=== PATIENT | female | born 1955 | race American Indian/Alaskan Native ===

== ENCOUNTER 2018-07-12 20:09 | Inpatient (IN) | payer MEDICARE ==
[2018-07-12 21:18] LABS: BUN/Creatinine Ratio 20; Blood Urea Nitrogen 18 mg/dL (7-17); Calcium 9.9 mg/dL (8.4-10.2); Hemolysis Index 51
[2018-07-12 21:42] LABS: Hematocrit 34.4 % (30.3-42.9); Hemoglobin 11.8 gm/dl (10.1-14.3); Mean Corpuscular HGB Conc 34 % (30-34); Mean Corpuscular Volume 86 fl (79-97); Platelet Count 218 K/mm3 (140-440); Red Cell Distribution Width 13.9 % (13.2-15.2)
[2018-07-12 21:54] LABS: Basophils # (Auto) 0.1 K/mm3 (0.0-0.1); Basophils % (Auto) 0.6 % (0.0-1.8); Eosinophils # (Auto) 0.1 K/mm3 (0.0-0.4); Eosinophils % (Auto) 1.3 % (0.0-4.3); Lymphocytes # (Auto) 2.7 K/mm3 (1.2-5.4); Lymphocytes % (Auto) 28.3 % (13.4-35.0); Monocytes # (Auto) 0.7 K/mm3 (0.0-0.8)
--- NOTE | 2018-07-12 22:09 | Emergency Department Report ---
ED General Adult HPI - General Chief complaint: Medical Clearance Stated complaint: ABNORMAL BEHAVIOR Time Seen by Provider: 07/12/18 21:41 Source: family, EMS Mode of arrival: Stretcher Limitations: No Limitations - History of Present Illness Initial comments: Patient has been fall frequently according to her sister. Patients Behavior has also changed recently and she takes off her cloths at home for no reason. Patient has history of dementia and Parkinson's disease. However has she states that behavior has drastically changed over the last few days. -: Sudden, days(s) Severity scale (0 -10): 0 Associated Symptoms: confusion Treatments Prior to Arrival: none - Related Data Home Medications Medication Instructions Recorded Confirmed Last Taken AtorvaSTATin [Lipitor] 20 mg PO DAILY 07/12/18 07/12/18 Unknown Carvedilol [Coreg] 6.25 mg PO BID 07/12/18 07/12/18 Unknown Dapagliflozin Propanediol [Farxiga] 10 mg PO DAILY 07/12/18 07/12/18 Unknown Ezetimibe 10 mg PO DAILY 07/12/18 07/12/18 Unknown FLUoxetine [PROzac] 20 mg PO QDAY 07/12/18 07/12/18 Unknown Metformin HCl 500 mg PO BID 07/12/18 07/12/18 Unknown QUEtiapine [SEROquel] 25 mg PO BID 07/12/18 07/12/18 Unknown busPIRone [Buspar] 10 mg PO TID 07/12/18 07/12/18 Unknown dilTIAZem CD [Cardizem Cd] 180 mg PO QDAY 07/12/18 07/12/18 Unknown Allergies Allergy/AdvReac Type Severity Reaction Status Date / Time Sulfa (Sulfonamide Allergy Unknown Verified 07/12/18 20:38 Antibiotics) ED Review of Systems ROS: Stated complaint: ABNORMAL BEHAVIOR Other details as noted in HPI Comment: Unobtainable due to pts medical conditions (Patient is confused and does not answer questions or follow commands.) ED Past Medical Hx - Past Medical History Previous Medical History?: Yes Hx Hypertension: Yes Additional medical history: Parkinson's Dementia - Surgical History Past Surgical History?: No - Social History Smoking Status: Unknown if ever smoked Substance Use Type: None - Medications Home Medications: Home Medications Medication Instructions Recorded Confirmed Last Taken Type AtorvaSTATin [Lipitor] 20 mg PO DAILY 07/12/18 07/12/18 Unknown History Carvedilol [Coreg] 6.25 mg PO BID 07/12/18 07/12/18 Unknown History Dapagliflozin Propanediol [Farxiga] 10 mg PO DAILY 07/12/18 07/12/18 Unknown History Ezetimibe 10 mg PO DAILY 07/12/18 07/12/18 Unknown History FLUoxetine [PROzac] 20 mg PO QDAY 07/12/18 07/12/18 Unknown History Metformin HCl 500 mg PO BID 07/12/18 07/12/18 Unknown History QUEtiapine [SEROquel] 25 mg PO BID 07/12/18 07/12/18 Unknown History busPIRone [Buspar] 10 mg PO TID 07/12/18 07/12/18 Unknown History dilTIAZem CD [Cardizem Cd] 180 mg PO QDAY 07/12/18 07/12/18 Unknown History ED Physical Exam - General Limitations: Altered Mental Status General appearance: alert, in no apparent distress - Head Head exam: Present: atraumatic, normal inspection - Eye Eye exam: Present: normal appearance Pupils: Present: normal accommodation - ENT ENT exam: Present: mucous membranes moist - Neck Neck exam: Present: normal inspection, full ROM. Absent: tenderness - Respiratory Respiratory exam: Present: rales, rhonchi. Absent: respiratory distress - Cardiovascular Cardiovascular Exam: Present: regular rate, normal rhythm - GI/Abdominal GI/Abdominal exam: Present: soft, tenderness (diffused), normal bowel sounds. Absent: distended, guarding, rebound - Rectal Rectal exam: Present: deferred - Extremities Exam Extremities exam: Present: normal inspection, full ROM, normal capillary refill - Back Exam Back exam: Present: normal inspection, full ROM - Neurological Exam Neurological exam: Present: alert, altered - Psychiatric Psychiatric exam: Present: flat affect - Skin Skin exam: Present: warm, dry, intact, normal color. Absent: rash ED Course Vital Signs 07/12/18 07/12/18 07/12/18 21:11 22:27 22:30 Temperature 97.8 F Pulse Rate 84 89 Respiratory 18 19 15 Rate Blood Pressure 161/85 Blood Pressure 121/75 [Left] O2 Sat by Pulse 98 95 99 Oximetry 07/12/18 07/12/18 07/12/18 22:46 23:00 23:16 Temperature Pulse Rate 89 80 Respiratory 15 18 17 Rate Blood Pressure 161/85 158/91 158/91 Blood Pressure [Left] O2 Sat by Pulse 100 98 100 Oximetry 07/12/18 07/12/18 07/13/18 23:30 23:46 00:02 Temperature Pulse Rate 83 86 Respiratory 11 L 12 Rate Blood Pressure 158/91 158/91 158/91 Blood Pressure [Left] O2 Sat by Pulse 98 Oximetry 07/13/18 07/13/18 07/13/18 01:20 01:30 01:45 Temperature Pulse Rate Respiratory Rate Blood Pressure 158/91 140/119 175/88 Blood Pressure [Left] O2 Sat by Pulse 83 L 98 96 Oximetry 07/13/18 02:00 Temperature Pulse Rate Respiratory Rate Blood Pressure 175/88 Blood Pressure [Left] O2 Sat by Pulse Oximetry - Consultations Consultation #1: 07/13/18 03:44 Dr Luz Delarosa wants patient admitted to Dr Stewart. ED Medical Decision Making - Lab Data Result diagrams: 07/12/18 21:35 07/12/18 20:50 Lab Results 07/12/18 07/12/18 07/12/18 Range/Units 20:50 20:50 20:50 WBC (4.5-11.0) K/mm3 RBC (3.65-5.03) M/mm3 Hgb (10.1-14.3) gm/dl Hct (30.3-42.9) % MCV (79-97) fl MCH (28-32) pg MCHC (30-34) % RDW (13.2-15.2) % Plt Count (140-440) K/mm3 Lymph % (Auto) (13.4-35.0) % Clarke % (Auto) (0.0-7.3) % Eos % (Auto) (0.0-4.3) % Baso % (Auto) (0.0-1.8) % Lymph # (1.2-5.4) K/mm3 Clarke # (0.0-0.8) K/mm3 Eos # (0.0-0.4) K/mm3 Baso # (0.0-0.1) K/mm3 Add Manual Diff Seg Neutrophils % (40.0-70.0) % Seg Neutrophils # (1.8-7.7) K/mm3 Sodium 138 (137-145) mmol/L Potassium 3.7 (3.6-5.0) mmol/L Chloride 98.2 (98-107) mmol/L Carbon Dioxide 27 (22-30) mmol/L Anion Gap 17 mmol/L BUN 18 H (7-17) mg/dL Creatinine 0.9 (0.7-1.2) mg/dL Estimated GFR > 60 ml/min BUN/Creatinine Ratio 20 % Glucose 102 H (65-100) mg/dL Calcium 9.9 (8.4-10.2) mg/dL Total Bilirubin (0.1-1.2) mg/dL Direct Bilirubin (0-0.2) mg/dL Indirect Bilirubin mg/dL AST (5-40) units/L ALT (7-56) units/L Alkaline Phosphatase (35-129) units/L Total Protein (6.3-8.2) g/dL Albumin (3.9-5) g/dL Albumin/Globulin Ratio % Lipase (13-60) units/L Salicylates < 0.3 L (2.8-20.0) mg/dL Acetaminophen < 5.0 L (10.0-30.0) ug/mL Plasma/Serum Alcohol (0-0.07) % 07/12/18 07/12/18 07/12/18 Range/Units 20:50 21:35 22:40 WBC 9.4 (4.5-11.0) K/mm3 RBC 4.00 (3.65-5.03) M/mm3 Hgb 11.8 (10.1-14.3) gm/dl Hct 34.4 (30.3-42.9) % MCV 86 (79-97) fl MCH 30 (28-32) pg MCHC 34 (30-34) % RDW 13.9 (13.2-15.2) % Plt Count 218 (140-440) K/mm3 Lymph % (Auto) 28.3 (13.4-35.0) % Clarke % (Auto) 7.0 (0.0-7.3) % Eos % (Auto) 1.3 (0.0-4.3) % Baso % (Auto) 0.6 (0.0-1.8) % Lymph # 2.7 (1.2-5.4) K/mm3 Clarke # 0.7 (0.0-0.8) K/mm3 Eos # 0.1 (0.0-0.4) K/mm3 Baso # 0.1 (0.0-0.1) K/mm3 Add Manual Diff Complete Seg Neutrophils % 62.8 (40.0-70.0) % Seg Neutrophils # 5.9 (1.8-7.7) K/mm3 Sodium (137-145) mmol/L Potassium (3.6-5.0) mmol/L Chloride (98-107) mmol/L Carbon Dioxide (22-30) mmol/L Anion Gap mmol/L BUN (7-17) mg/dL Creatinine (0.7-1.2) mg/dL Estimated GFR ml/min BUN/Creatinine Ratio % Glucose (65-100) mg/dL Calcium (8.4-10.2) mg/dL Total Bilirubin 0.60 (0.1-1.2) mg/dL Direct Bilirubin < 0.2 (0-0.2) mg/dL Indirect Bilirubin 0.4 mg/dL AST 32 (5-40) units/L ALT 11 (7-56) units/L Alkaline Phosphatase 111 (35-129) units/L Total Protein 6.7 (6.3-8.2) g/dL Albumin 3.9 (3.9-5) g/dL Albumin/Globulin Ratio 1.4 % Lipase 33 (13-60) units/L Salicylates (2.8-20.0) mg/dL Acetaminophen (10.0-30.0) ug/mL Plasma/Serum Alcohol < 0.01 (0-0.07) % - EKG Data -: EKG Interpreted by Or EKG shows normal: sinus rhythm Rate: normal (86) - EKG Data When compared to previous EKG there are: previous EKG unavailable Interpretation: normal EKG 07/13/18 00:31 No STEMI. - Radiology Data Radiology results: report reviewed, image reviewed CXR is negative. CT head, chest, abdomen and pelvis showed constipation o/w no acute findings. - Medical Decision Making Altered mental status. Frequent Falls. H/O Dementia. Critical care attestation.: If time is entered above; I have spent that time in minutes in the direct care of this critically ill patient, excluding procedure time. ED Disposition Clinical Impression: Abnormal behavior Altered mental status, unspecified Qualifiers: Altered mental status type: unspecified Qualified Code(s): R41.82 - Altered mental status, unspecified Fall Qualifiers: Encounter type: initial encounter Qualified Code(s): W19.XXXA - Unspecified fall, initial encounter Disposition: 09 OP ADMIT IP TO THIS HOSP Is pt being admited?: Yes Does the pt Need Aspirin: No Condition: Stable Referrals: PRIMARY CARE, [Primary Care Provider] - 3-5 Days Time of Disposition: 03:46
[2018-07-12] MEDS ORDERED: NACL 0.9% 1000 ML 1,000 ML IV ONE (22:13)
[2018-07-12 23:17] LABS: Alanine Aminotransferase 11 units/L (7-56); Albumin 3.9 g/dL (3.9-5)
[2018-07-12 23:25] LABS: Bilirubin,Direct < 0.2 mg/dL (0-0.2)
--- NOTE | 2018-07-12 23:27 | XRay Report ---
FINAL REPORT PROCEDURE: XR CHEST 1V AP TECHNIQUE: Chest radiograph anteroposterior view. CPT 49412 HISTORY: cough COMPARISON: No prior studies are available for comparison. FINDINGS: Heart: Normal. Mediastinum/Vessels: Normal. Lungs/Pleural space: Normal. Bony thorax: No acute osseous abnormality. Life support devices: None. IMPRESSION: No acute cardiopulmonary abnormality.
[2018-07-13] MEDS ORDERED: ATIVAN ONE (00:20)
[2018-07-13] MEDS ORDERED: VERSED IV ONE ×2 (01:00→01:18)
[2018-07-13] MEDS ORDERED: ATIVAN PO ONE (01:07)
[2018-07-13 02:01] LABS: Bilirubin,Urine NEG (Negative); Blood,Urine NEG (Negative); Color,Urine Yellow (Yellow); Mucus,Urine FEW /HPF; Protein,Urine <15 mg/dL mg/dL (Negative); RBC,Urine < 1.0 /HPF (0.0-6.0); Urobilinogen,Urine < 2.0 mg/dL (<2.0); WBC,Urine < 1.0 /HPF (0.0-6.0)
[2018-07-13 02:10] LABS: Amphetamine Screen,Urine PRESUMPTIVE NEGATIVE; Benzodiazepines Screen,Urine PRESUMPTIVE NEGATIVE; Cannabinoid Screen,Urine PRESUMPTIVE NEGATIVE; Cocaine Screen,Urine PRESUMPTIVE NEGATIVE; Methadone Screen,Urine PRESUMPTIVE NEGATIVE; Opiate Screen,Urine PRESUMPTIVE NEGATIVE
--- NOTE | 2018-07-13 02:45 | Cat Scan Report ---
FINAL REPORT PROCEDURE: CT HEAD/BRAIN WO CON TECHNIQUE: Computerized tomography of the head was performed without contrast material. HISTORY: altered mental status COMPARISON: No prior studies are available for comparison. FINDINGS: Skull and scalp: Normal. Paranasal sinuses: Normal. Ventricles and subarachnoid spaces: Normal. Cerebrum: No evidence of hemorrhage, acute infarction or mass . Cerebellum and brainstem: No evidence of hemorrhage, acute infarction or mass. Vasculature: Normal. Comments: None. IMPRESSION: There is no evidence of an acute intracranial process
--- NOTE | 2018-07-13 02:51 | Cat Scan Report ---
FINAL REPORT PROCEDURE: CT ABDOMEN PELVIS W CON TECHNIQUE: Computerized axial tomography of the abdomen and pelvis was performed after the IV inject ion of iodinated nonionic contrast. HISTORY: abdominal pain COMPARISON: No prior studies are available for comparison. FINDINGS: Visualized lower thorax: No significant abnormality. Liver: Normal size and attenuation. Spleen: Normal size and attenuation. Gallbladder and biliary system: Normal. Pancreas: Normal. Adrenals: Normal. Kidneys: Normal. GI tract: No evidence of obstruction. The appendix region has a normal appearance. There is significa nt fecal debris in the colon including the rectum. Constipation and possible fecal impaction are with in the differential.. Lymph nodes and mesentery: Normal. Vasculature: Normal. Bladder: Normal. Reproductive organs: Normal. Peritoneum: No free fluid. Musculoskeletal structures: No significant abnormality. Other: None. IMPRESSION: There is significant fecal debris throughout colon all the rectum. Findings are consistent with const ipation and possible fecal impaction. There is no evidence of intestinal or urinary tract obstruction.
--- NOTE | 2018-07-13 03:01 | Cat Scan Report ---
FINAL REPORT PROCEDURE: CT CHEST W CON TECHNIQUE: Computerized axial tomography of the chest was performed during the IV injection of iodin ated nonionic contrast. HISTORY: shortness of breath COMPARISON: No prior studies are available for comparison. TECHNICAL QUALITY: Satisfactory. FINDINGS: Heart and pericardium: Normal. Thoracic aorta: Normal. Pulmonary vasculature: Normal. Lymph nodes: No enlarged thoracic lymph nodes. Lungs: The lungs are clear. No infiltrate, effusion or pneumothorax.. Pleural space: No effusion, thickening, or pneumothorax. Musculoskeletal structures: Moderate degenerative changes of the osseous structures.. Upper abdominal structures: There is a large hiatal hernia.. IMPRESSION: The lungs are clear without infiltrate, effusion or pneumothorax. There is a large hiatal hernia.
--- NOTE | 2018-07-13 16:01 | History and Physical Report ---
History of Present Illness Date of examination: 07/13/18 Date of admission: 07/13/18 05:22 Chief complaint: AMS History of present illness: Patient is a 63 yo woman from [facility] who recently moved into the area with her sister Beatrice Glass at bedside. She has not establish follow up care. Patient has a history of type 2 DM, hypertension, Parkinsonism symptoms, dlp and dementia with behavior disorder who presents to [facility] ED with AMS, agitation, frequent falling, FTT symptoms and psychosis. She was seen at [facility] ED on Sunday for medication refills and psychosis. She had a 90 day supply from doctor in [facility] but some had run out. She was sent home from [facility] ED with an increase dose of Seroquel 25mg from once daily to twice daily and Buspar was increased from twice daily to three times a day. This has not helped her confusion. She has thrown dirty soiled diapers at family members, she wonders, she is aggressive and fights. Her speech is tangential. She will be admitted for medical clearance to be placed. PMH: as hpi PSH: unable to obtain SH: unable to obtain FH: unable to obtain ROS: unable to obtain due to mental status Medications and Allergies Allergies Allergy/AdvReac Type Severity Reaction Status Date / Time Sulfa (Sulfonamide Allergy Unknown Verified 07/12/18 20:38 Antibiotics) Home Medications Medication Instructions Recorded Confirmed Last Taken Type AtorvaSTATin [Lipitor] 20 mg PO DAILY 07/12/18 07/12/18 Unknown History Carvedilol [Coreg] 6.25 mg PO BID 07/12/18 07/12/18 Unknown History Dapagliflozin Propanediol [Farxiga] 10 mg PO DAILY 07/12/18 07/12/18 Unknown History Ezetimibe 10 mg PO DAILY 07/12/18 07/12/18 Unknown History FLUoxetine [PROzac] 20 mg PO QDAY 07/12/18 07/12/18 Unknown History Metformin HCl 500 mg PO QPM 07/12/18 07/13/18 Unknown History QUEtiapine [SEROquel] 25 mg PO BID 07/12/18 07/12/18 Unknown History busPIRone [Buspar] 10 mg PO TID 07/12/18 07/12/18 Unknown History dilTIAZem CD [Cardizem Cd] 180 mg PO QDAY 07/12/18 07/12/18 Unknown History Carbidopa/Levodopa 25-100 [Sinemet] 1 each PO TID 07/13/18 07/13/18 Unknown History Dapagliflozin Propanediol [Farxiga] 10 mg PO DAILY 07/13/18 07/13/18 Unknown History Active Meds: Active Medications Pneumococcal Polyvalent Vaccine (Pneumovax 23) 0.5 ml IM .ONCE ONE Stop: 07/14/18 12:01 Exam - Physical Exam Narrative exam: Gen: thin frail NAD, Awake, Alert, very confused, HEENT: NCAT, EOMI, PERRL, OP Clear Neck: supple, no adenopathy, no thyromegaly, no JVD CVS/Heart: Regualar tachycardia, normal S1S2, pulses present bilaterally Chest/Lungs: CTA B, Symmetrical chest expansion, good air entry bilaterally GI/Abdomen: soft, NTND, good bowel sounds, no guarding or rebound /Bladder: no suprapubic tenderness, no CVA or paraspinal tenderness Extermity/Skin: no c/c/e, no obvious rash MSK: moving, FROM x 4 Neuro: CN 2-12 grossly intact, no new focal deficits Psych: agitated, fist balled and up swinging - Constitutional Vitals: Temp Pulse Resp BP Pulse Ox 98.0 F 116 H 20 160/99 96 07/13/18 11:34 07/13/18 11:34 07/13/18 11:34 07/13/18 11:34 07/13/18 11:34 Results - Labs CBC & Chem 7: 07/12/18 21:35 07/12/18 20:50 Labs: Abnormal lab results 07/12/18 07/12/18 07/12/18 Range/Units 20:50 20:50 20:50 BUN 18 H (7-17) mg/dL Glucose 102 H (65-100) mg/dL Salicylates < 0.3 L (2.8-20.0) mg/dL Acetaminophen < 5.0 L (10.0-30.0) ug/mL Assessment and Plan Patient is a 63 yo woman from [facility] who recently moved into the area with her sister Beatrice Glass at bedside. She has not establish follow up care. Patient has a history of type 2 DM, hypertension, Parkinsonism symptoms, dlp and dementia with behavior disorder who presents to [facility] ED with AMS, agitation, frequent falling, FTT symptoms and psychosis. She was seen at [facility] ED on Sunday for medication refills and psychosis. She had a 90 day supply from doctor in [facility] but some had run out. She was sent home from [facility] ED with an increase dose of Seroquel 25mg from once daily to twice daily, Buspar was increased from twice daily to three times a day and started Cardizem (new drug). This has not helped her confusion. She has thrown dirty soiled diapers at family members, she wonders, she is aggressive and fights. Her speech is tangential. She will be admitted for medical clearance to be placed. CXR is negative. CT head, chest, abdomen and pelvis showed constipation o/w no acute findings. -Acute metabolic encephalopathy: restraints, add iv haldol prn -Worsening Dementia with behavior disorder; increase seroquel and consulted psych, d/c remote tele, she is throwing the leads at me and refuse to wear them -Tachycardia, ams related: stopped Cardizem due to interaction with seroquel -Constipated: give dulcolax suppository -Dehydration: give ivf -Type 2 DM: use ssi -Malnutrition, bmi 18.9; consult kaiawhina full code Disposition: continue inpatient care
[2018-07-13] MEDS ORDERED: D50W (25GM) Syringe IV PRN (16:12)
[2018-07-13] MEDS ORDERED: DULCOLAX PR ONE (17:00)
[2018-07-13] MEDS: HumaLOG SUB-Q SCH (19:19)
[2018-07-13] MEDS: GLUCOPHAGE PO SCH (19:20)
[2018-07-13] MEDS: NACL 0.45% 1000 ML 1,000 ML IV SCH (20:31)
[2018-07-13] MEDS: BUSPAR PO SCH (20:31)
[2018-07-13] MEDS: ATIVAN IV PRN (20:31)
[2018-07-13] MEDS: SINEMET PO SCH (20:31)
[2018-07-13] MEDS: COREG PO SCH (21:35)
[2018-07-14] MEDS: HumaLOG SUB-Q SCH ×4 (00:07→17:42)
[2018-07-14 04:58] LABS: Hematocrit 37.9 % (30.3-42.9); Hemoglobin 12.3 gm/dl (10.1-14.3); Mean Corpuscular HGB Conc 32 % (30-34); Mean Corpuscular Volume 88 fl (79-97); Platelet Count 214 K/mm3 (140-440); Red Blood Count 4.29 M/mm3 (3.65-5.03); Red Cell Distribution Width 14.3 % (13.2-15.2)
[2018-07-14 05:09] LABS: Blood Urea Nitrogen 14 mg/dL (7-17)
[2018-07-14 05:10] LABS: BUN/Creatinine Ratio 28; Calcium 8.9 mg/dL (8.4-10.2); Hemolysis Index 10
[2018-07-14] MEDS: NACL 0.45% 1000 ML 1,000 ML IV SCH ×2 (06:21→15:30)
[2018-07-14] MEDS: ATIVAN IV PRN (06:24)
[2018-07-14] MEDS: SINEMET PO SCH ×3 (08:32→20:17)
[2018-07-14] MEDS: BUSPAR PO SCH ×3 (08:32→20:17)
[2018-07-14] MEDS: PROzac PO SCH (10:00)
[2018-07-14] MEDS ORDERED: CARDIZEM CD PO SCH (10:00)
[2018-07-14] MEDS: COREG PO SCH ×2 (10:00→21:54)
[2018-07-14] MEDS ORDERED: AFLURIA QUAD 2018-2019 SYRINGE IM ONE (12:00)
[2018-07-14] MEDS ORDERED: PNEUMOVAX 23 IM ONE (12:00)
[2018-07-14] MEDS: ATIVAN PO SCH ×2 (13:20→20:17)
[2018-07-14] MEDS: GLUCOPHAGE PO SCH (17:44)
--- NOTE | 2018-07-14 17:48 | Progress Note ---
Assessment and Plan Assessment and plan: Patient is a 63 yo woman from [facility] who recently moved into the area with her sister Beatrice Glass at bedside. She has not establish follow up care. Patient has a history of type 2 DM, hypertension, Parkinsonism symptoms, dlp and dementia with behavior disorder who presents to [facility] ED with AMS, agitation, frequent falling, FTT symptoms and psychosis. She was seen at [facility] ED on Sunday for medication refills and psychosis. She had a 90 day supply from doctor in [facility] but some had run out. She was sent home from [facility] ED with an increase dose of Seroquel 25mg from once daily to twice daily, Buspar was increased from twice daily to three times a day and started Cardizem (new drug). This has not helped her confusion. She has thrown dirty soiled diapers at family members, she wonders, she is aggressive and fights. Her speech is tangential. She will be admitted for medical clearance to be placed. CXR is negative. CT head, chest, abdomen and pelvis showed constipation o/w no acute findings. -Acute metabolic encephalopathy: restraints, add iv haldol prn, the Ativan helps the most -Worsening Dementia with behavior disorder; increase seroquel and consulted psych, d/c remote tele, she is throwing the leads at me and refuse to wear them -Tachycardia, ams related: stopped Cardizem due to interaction with seroquel -Constipated: give dulcolax suppository -Dehydration: give ivf -Type 2 DM: use ssi -Malnutrition, bmi 18.9; consult grades 1 thru 5 teacher full code Disposition: continue inpatient care History Interval history: Patient was seen and examined. Follow-up on current diagnosis of AMS. Overnight uneventful. Patient denies any chest pain, shortness breath, nausea/vomiting or severe headaches. Imaging, nursing note, chart, labs and old chart reviewed. Discussed with patient. The ativan helps the most. Hospitalist Physical - Physical exam Narrative exam: Gen: thin frail NAD, Awake, Alert, very confused, HEENT: NCAT, EOMI, PERRL, OP Clear Neck: supple, no adenopathy, no thyromegaly, no JVD CVS/Heart: Regualar tachycardia, normal S1S2, pulses present bilaterally Chest/Lungs: CTA B, Symmetrical chest expansion, good air entry bilaterally GI/Abdomen: soft, NTND, good bowel sounds, no guarding or rebound /Bladder: no suprapubic tenderness, no CVA or paraspinal tenderness Extermity/Skin: no c/c/e, no obvious rash MSK: moving, FROM x 4 Neuro: CN 2-12 grossly intact, no new focal deficits Psych: agitated, fist balled and up swinging - Constitutional Vitals: Temp Pulse Resp BP Pulse Ox 97.8 F 102 H 18 132/78 98 07/14/18 12:34 07/14/18 04:39 07/14/18 12:34 07/14/18 12:34 07/14/18 04:39 Results - Labs CBC & Chem 7: 07/14/18 04:24 07/14/18 04:24 Labs: Laboratory Last Values WBC 14.5 K/mm3 (4.5-11.0) H 07/14/18 04:24 RBC 4.29 M/mm3 (3.65-5.03) 07/14/18 04:24 Hgb 12.3 gm/dl (10.1-14.3) 07/14/18 04:24 Hct 37.9 % (30.3-42.9) 07/14/18 04:24 MCV 88 fl (79-97) 07/14/18 04:24 MCH 29 pg (28-32) 07/14/18 04:24 MCHC 32 % (30-34) 07/14/18 04:24 RDW 14.3 % (13.2-15.2) 07/14/18 04:24 Plt Count 214 K/mm3 (140-440) 07/14/18 04:24 Lymph % (Auto) 28.3 % (13.4-35.0) 07/12/18 21:35 [place] % (Auto) 7.0 % (0.0-7.3) 07/12/18 21:35 Eos % (Auto) 1.3 % (0.0-4.3) 07/12/18 21:35 Baso % (Auto) 0.6 % (0.0-1.8) 07/12/18 21:35 Lymph # 2.7 K/mm3 (1.2-5.4) 07/12/18 21:35 [place] # 0.7 K/mm3 (0.0-0.8) 07/12/18 21:35 Eos # 0.1 K/mm3 (0.0-0.4) 07/12/18 21:35 Baso # 0.1 K/mm3 (0.0-0.1) 07/12/18 21:35 Add Manual Diff Complete 07/12/18 21:35 Seg Neutrophils % 62.8 % (40.0-70.0) 07/12/18 21:35 Seg Neutrophils # 5.9 K/mm3 (1.8-7.7) 07/12/18 21:35 Sodium 138 mmol/L (137-145) 07/14/18 04:24 Potassium 4.2 mmol/L (3.6-5.0) 07/14/18 04:24 Chloride 101.3 mmol/L (98-107) 07/14/18 04:24 Carbon Dioxide 25 mmol/L (22-30) 07/14/18 04:24 Anion Gap 16 mmol/L 07/14/18 04:24 BUN 14 mg/dL (7-17) 07/14/18 04:24 Creatinine 0.5 mg/dL (0.7-1.2) L 07/14/18 04:24 Estimated GFR > 60 ml/min 07/14/18 04:24 BUN/Creatinine Ratio 28 % 07/14/18 04:24 Glucose 106 mg/dL (65-100) H 07/14/18 04:24 POC Glucose 135 (70-105) H 07/14/18 16:56 Calcium 8.9 mg/dL (8.4-10.2) 07/14/18 04:24 Magnesium 1.80 mg/dL (1.7-2.3) 07/14/18 04:24 Total Bilirubin 0.60 mg/dL (0.1-1.2) 07/12/18 22:40 Direct Bilirubin < 0.2 mg/dL (0-0.2) 07/12/18 22:40 Indirect Bilirubin 0.4 mg/dL 07/12/18 22:40 AST 32 units/L (5-40) 07/12/18 22:40 ALT 11 units/L (7-56) 07/12/18 22:40 Alkaline Phosphatase 111 units/L (35-129) 07/12/18 22:40 Troponin T < 0.010 ng/mL (0.00-0.029) 07/12/18 22:40 Total Protein 6.7 g/dL (6.3-8.2) 07/12/18 22:40 Albumin 3.9 g/dL (3.9-5) 07/12/18 22:40 Albumin/Globulin Ratio 1.4 % 07/12/18 22:40 Lipase 33 units/L (13-60) 07/12/18 22:40 TSH 2.320 mlU/mL (0.270-4.200) 07/14/18 04:24 Urine Color Yellow (Yellow) 07/12/18 01:29 Urine Turbidity Clear (Clear) 07/12/18 01:29 Urine pH 5.0 (5.0-7.0) 07/12/18 01:29 Ur Specific [place] 1.020 (1.003-1.030) 07/12/18 01:29 Urine Protein <15 mg/dl mg/dL (Negative) 07/12/18 01:29 Urine Glucose (UA) >=500 mg/dL (Negative) 07/12/18 01:29 Urine Ketones Tr mg/dL (Negative) 07/12/18 01:29 Urine Blood Neg (Negative) 07/12/18 01:29 Urine Nitrite Neg (Negative) 07/12/18 01:29 Urine Bilirubin Neg (Negative) 07/12/18 01:29 Urine Urobilinogen < 2.0 mg/dL (<2.0) 07/12/18 01:29 Ur Leukocyte Esterase Neg (Negative) 07/12/18 01:29 Urine WBC (Auto) < 1.0 /HPF (0.0-6.0) 07/12/18 01:29 Urine RBC (Auto) < 1.0 /HPF (0.0-6.0) 07/12/18 01:29 Urine Mucus Few /HPF 07/12/18 01:29 Salicylates < 0.3 mg/dL (2.8-20.0) L 07/12/18 20:50 Urine Opiates Screen Presumptive negative 07/12/18 01:29 Urine Methadone Screen Presumptive negative 07/12/18 01:29 Acetaminophen < 5.0 ug/mL (10.0-30.0) L 07/12/18 20:50 Ur Barbiturates Screen Presumptive negative 07/12/18 01:29 Ur Phencyclidine Scrn Presumptive negative 07/12/18 01:29 Ur Amphetamines Screen Presumptive negative 07/12/18 01:29 U Benzodiazepines Scrn Presumptive negative 07/12/18 01:29 Urine Cocaine Screen Presumptive negative 07/12/18 01:29 U Marijuana (THC) Screen Presumptive negative 07/12/18 01:29 Drugs of Abuse Note Disclamer 07/12/18 01:29 Plasma/Serum Alcohol < 0.01 % (0-0.07) 07/12/18 20:50
--- NOTE | 2018-07-14 18:32 | Consultation ---
History of Present Illness - Reason for Consult Consult date: 07/14/18 Reason for consult: psychiatric evaluation - Chief Complaint Chief complaint: "ok" - History of Present Psychiatric Illness 63 year old AA female seen for psychiatric evaluation on the medical floor. She presents to [facility] ED with AMS, agitation, frequent falling, FTT symptoms and psychosis. She was seen at [facility] ED on Sunday for medica tion refills and psychotic symptoms. Per the record, [she had a 90 day supply from doctor in [place] but some had run out. She was sent home from [facility] ED with an increase dose of Seroquel 25mg from once daily to twice daily and Buspar was increased from twice daily to three times a day. This has not helped her confusion. She has thrown dirty soiled diapers at family members, she wanders, she is aggressive and fights. Her speech is tangential. She will be admitted for medical clearance to be placed.] She is yelling. Speech is mostly incoherent. She was able to ask for the tv channel to be changed. She stated her name when asked. Medications and Allergies Allergies Allergy/AdvReac Type Severity Reaction Status Date / Time Sulfa (Sulfonamide Allergy Unknown Verified 07/12/18 20:38 Antibiotics) Home Medications Medication Instructions Recorded Confirmed Last Taken Type AtorvaSTATin [Lipitor] 20 mg PO DAILY 07/12/18 07/12/18 Unknown History Carvedilol [Coreg] 6.25 mg PO BID 07/12/18 07/12/18 Unknown History Dapagliflozin Propanediol [Farxiga] 10 mg PO DAILY 07/12/18 07/12/18 Unknown History Ezetimibe 10 mg PO DAILY 07/12/18 07/12/18 Unknown History FLUoxetine [PROzac] 20 mg PO QDAY 07/12/18 07/12/18 Unknown History Metformin HCl 500 mg PO QPM 07/12/18 07/13/18 Unknown History QUEtiapine [SEROquel] 25 mg PO BID 07/12/18 07/12/18 Unknown History busPIRone [Buspar] 10 mg PO TID 07/12/18 07/12/18 Unknown History dilTIAZem CD [Cardizem Cd] 180 mg PO QDAY 07/12/18 07/12/18 Unknown History Carbidopa/Levodopa 25-100 [Sinemet] 1 each PO TID 07/13/18 07/13/18 Unknown History Dapagliflozin Propanediol [Farxiga] 10 mg PO DAILY 07/13/18 07/13/18 Unknown History Active Meds: Active Medications Atorvastatin Calcium (Lipitor) 20 mg PO QHS [facility] Last Admin: 07/13/18 21:35 Dose: 20 mg Documented by: Buspirone HCl (Buspar) 10 mg PO TID [facility] Last Admin: 07/14/18 13:20 Dose: 10 mg Documented by: Carbidopa/Levodopa (Sinemet) 1 each PO TID [facility] Last Admin: 07/14/18 13:20 Dose: 1 each Documented by: Carvedilol (Coreg) 6.25 mg PO BID [facility] Last Admin: 07/14/18 10:00 Dose: 6.25 mg Documented by: Dextrose (D50w (25gm) Syringe) 50 ml IV PRN PRN PRN Reason: Hypoglycemia Fluoxetine HCl (Prozac) 20 mg PO QDAY [facility] Last Admin: 07/14/18 10:00 Dose: 20 mg Documented by: Haloperidol Lactate (Haldol) 5 mg IM Q6H PRN PRN Reason: Agitation Sodium Chloride (Nacl 0.45% 1000 Ml) 1,000 mls @ 100 mls/hr IV DIRECT [facility] Last Admin: 07/14/18 15:30 Dose: 100 mls/hr Documented by: Insulin Human Lispro (Humalog) 0 unit SUB-Q Q6HR [facility]; Protocol Last Admin: 07/14/18 17:42 Dose: Not Given Documented by: Lorazepam (Ativan) 1 mg PO TID [facility] Last Admin: 07/14/18 13:20 Dose: 1 mg Documented by: Metformin HCl (Glucophage) 500 mg PO QPM [facility] Last Admin: 07/14/18 17:44 Dose: 500 mg Documented by: Quetiapine Fumarate (Seroquel) 50 mg PO BID [facility] Last Admin: 07/14/18 10:00 Dose: 50 mg Documented by: Past psychiatric history - Past Medical History Past Medical History: other (type 2 DM, hypertension, Parkinsonism symptoms, dementia with behavior disorder ) - Social History Social history: lives with family Mental Status Exam - Vital signs Last Vital Signs Temp 98.0 F 07/14/18 17:17 Pulse 102 H 07/14/18 04:39 Resp 16 07/14/18 17:17 BP 166/93 07/14/18 17:17 Pulse Ox 98 07/14/18 04:39 - Exam Orientation: person Affect: agitated Mood: congruent with affect Thought content: other (unable to assess) Thought Process: Disoriented Speech: incoherent (mostly incoherent) Concentration: unable to pay attention Motor activity: restless Level of consciousness: confused Memory: Recent Impaired Sleep Symptoms: Restless Interaction: irritable Results Result Diagrams: 07/14/18 04:24 07/14/18 04:24 Abnormal lab results 07/14/18 07/14/18 07/14/18 Range/Units 00:07 04:24 04:24 WBC 14.5 H (4.5-11.0) K/mm3 Creatinine 0.5 L (0.7-1.2) mg/dL Glucose 106 H (65-100) mg/dL POC Glucose 119 H (70-105) 07/14/18 07/14/18 07/14/18 Range/Units 05:27 12:09 16:56 WBC (4.5-11.0) K/mm3 Creatinine (0.7-1.2) mg/dL Glucose (65-100) mg/dL POC Glucose 110 H 155 H 135 H (70-105) All other labs normal. Assessment and Plan Assessment and plan: Impression: dementia with behavioral disturbance r/o delirium recommendation: fall precautions seroquel increases the risk of orthostatic hypotension and falls consider risperdal 0.5mg hs for agitation r/o underlying medical conditions responsible for worsening behavior/falls. Recommend Delirium precautions below: 1. Frequently reorient patient and involve him/her in their care (simple explanations of procedures, tests, medications). 2. Lights on and shades open during daytime hours. 3. Write date and goals of care in a visible place. 4. Try to avoid unnecessary interruptions to sleep during nighttime hours. 5. Obtain glasses, hearing aids from home if patient uses these at baseline. 6. Avoid medications that may exacerbate delirium (especially narcotics, benzodiazepines, barbiturates, ambien, lunesta, and medications with excessive anticholinergic property.) dispo: psych will follow will staff with Dr. Cong Whalen
[2018-07-15] MEDS: HumaLOG SUB-Q SCH ×4 (00:02→17:25)
[2018-07-15] MEDS: NACL 0.45% 1000 ML 1,000 ML IV SCH ×3 (00:09→22:33)
[2018-07-15] MEDS ORDERED: APRESOLINE IV PRN (06:35)
--- NOTE | 2018-07-15 07:26 | Progress Note ---
Assessment and Plan Assessment and plan: Patient is a 63 yo woman from [facility] who recently moved into the area with her sister Beatrice Glass at bedside. She has not establish follow up care. Patient has a history of type 2 DM, hypertension, Parkinsonism symptoms, dlp and dementia with behavior disorder who presents to [facility] ED with AMS, agitation, frequent falling, FTT symptoms and psychosis. She was seen at [facility] ED on Sunday for medication refills and psychosis. She had a 90 day supply from doctor in [facility] but some had run out. She was sent home from [facility] ED with an increase dose of Seroquel 25mg from once daily to twice daily, Buspar was increased from twice daily to three times a day and started Cardizem (new drug). This has not helped her confusion. She has thrown dirty soiled diapers at family members, she wonders, she is aggressive and fights. Her speech is tangential. She will be admitted for medical clearance to be placed. CXR is negative. CT head, chest, abdomen and pelvis showed constipation o/w no acute findings. -Acute metabolic encephalopathy: restraints, add iv haldol prn, the Ativan helps the most -Worsening Dementia with behavior disorder; increase seroquel and consulted psych, d/c remote tele, she is throwing the leads at me and refuse to wear them -Tachycardia, ams related: stopped Cardizem due to interaction with seroquel and she is already on coreg -Accelerated hypertension; added Norvasc -Constipated: give dulcolax suppository -Dehydration: give ivf -Type 2 DM: use ssi -Malnutrition, bmi 15.5 corrected; consult bat lathe operator full code Disposition: continue inpatient care History Interval history: Patient was seen and examined. Follow-up on current diagnosis of AMS. Overnight uneventful. Patient denies any chest pain, shortness breath, nausea/vomiting or severe headaches. Imaging, nursing note, chart, labs and old chart reviewed. Di scussed with patient. The ativan helps the most. Hospitalist Physical - Physical exam Narrative exam: Gen: thin frail NAD, Awake, Alert, very confused, HEENT: NCAT, EOMI, PERRL, OP Clear Neck: supple, no adenopathy, no thyromegaly, no JVD CVS/Heart: Regualar tachycardia, normal S1S2, pulses present bilaterally Chest/Lungs: CTA B, Symmetrical chest expansion, good air entry bilaterally GI/Abdomen: soft, NTND, good bowel sounds, no guarding or rebound /Bladder: no suprapubic tenderness, no CVA or paraspinal tenderness Extermity/Skin: no c/c/e, no obvious rash MSK: moving, FROM x 4 Neuro: CN 2-12 grossly intact, no new focal deficits Psych: agitated, fist balled and up swinging - Constitutional Vitals: Temp Pulse Resp BP Pulse Ox 98.2 F 74 20 184/91 100 07/15/18 05:01 07/15/18 05:01 07/15/18 05:01 07/15/18 06:37 07/15/18 05:01 Results - Labs CBC & Chem 7: 07/14/18 04:24 07/14/18 04:24 Labs: Laboratory Last Values WBC 14.5 K/mm3 (4.5-11.0) H 07/14/18 04:24 RBC 4.29 M/mm3 (3.65-5.03) 07/14/18 04:24 Hgb 12.3 gm/dl (10.1-14.3) 07/14/18 04:24 Hct 37.9 % (30.3-42.9) 07/14/18 04:24 MCV 88 fl (79-97) 07/14/18 04:24 MCH 29 pg (28-32) 07/14/18 04:24 MCHC 32 % (30-34) 07/14/18 04:24 RDW 14.3 % (13.2-15.2) 07/14/18 04:24 Plt Count 214 K/mm3 (140-440) 07/14/18 04:24 Lymph % (Auto) 28.3 % (13.4-35.0) 07/12/18 21:35 [place] % (Auto) 7.0 % (0.0-7.3) 07/12/18 21:35 Eos % (Auto) 1.3 % (0.0-4.3) 07/12/18 21:35 Baso % (Auto) 0.6 % (0.0-1.8) 07/12/18 21:35 Lymph # 2.7 K/mm3 (1.2-5.4) 07/12/18 21:35 [place] # 0.7 K/mm3 (0.0-0.8) 07/12/18 21:35 Eos # 0.1 K/mm3 (0.0-0.4) 07/12/18 21:35 Baso # 0.1 K/mm3 (0.0-0.1) 07/12/18 21:35 Add Manual Diff Complete 07/12/18 21:35 Seg Neutrophils % 62.8 % (40.0-70.0) 07/12/18 21:35 Seg Neutrophils # 5.9 K/mm3 (1.8-7.7) 07/12/18 21:35 Sodium 138 mmol/L (137-145) 07/14/18 04:24 Potassium 4.2 mmol/L (3.6-5.0) 07/14/18 04:24 Chloride 101.3 mmol/L (98-107) 07/14/18 04:24 Carbon Dioxide 25 mmol/L (22-30) 07/14/18 04:24 Anion Gap 16 mmol/L 07/14/18 04:24 BUN 14 mg/dL (7-17) 07/14/18 04:24 Creatinine 0.5 mg/dL (0.7-1.2) L 07/14/18 04:24 Estimated GFR > 60 ml/min 07/14/18 04:24 BUN/Creatinine Ratio 28 % 07/14/18 04:24 Glucose 106 mg/dL (65-100) H 07/14/18 04:24 POC Glucose 95 (70-105) 07/15/18 05:47 Calcium 8.9 mg/dL (8.4-10.2) 07/14/18 04:24 Magnesium 1.80 mg/dL (1.7-2.3) 07/14/18 04:24 Total Bilirubin 0.60 mg/dL (0.1-1.2) 07/12/18 22:40 Direct Bilirubin < 0.2 mg/dL (0-0.2) 07/12/18 22:40 Indirect Bilirubin 0.4 mg/dL 07/12/18 22:40 AST 32 units/L (5-40) 07/12/18 22:40 ALT 11 units/L (7-56) 07/12/18 22:40 Alkaline Phosphatase 111 units/L (35-129) 07/12/18 22:40 Troponin T < 0.010 ng/mL (0.00-0.029) 07/12/18 22:40 Total Protein 6.7 g/dL (6.3-8.2) 07/12/18 22:40 Albumin 3.9 g/dL (3.9-5) 07/12/18 22:40 Albumin/Globulin Ratio 1.4 % 07/12/18 22:40 Lipase 33 units/L (13-60) 07/12/18 22:40 TSH 2.320 mlU/mL (0.270-4.200) 07/14/18 04:24 Urine Color Yellow (Yellow) 07/12/18 01:29 Urine Turbidity Clear (Clear) 07/12/18 01:29 Urine pH 5.0 (5.0-7.0) 07/12/18 01:29 Ur Specific [place] 1.020 (1.003-1.030) 07/12/18 01:29 Urine Protein <15 mg/dl mg/dL (Negative) 07/12/18 01:29 Urine Glucose (UA) >=500 mg/dL (Negative) 07/12/18 01:29 Urine Ketones Tr mg/dL (Negative) 07/12/18 01:29 Urine Blood Neg (Negative) 07/12/18 01:29 Urine Nitrite Neg (Negative) 07/12/18 01:29 Urine Bilirubin Neg (Negative) 07/12/18 01:29 Urine Urobilinogen < 2.0 mg/dL (<2.0) 07/12/18 01:29 Ur Leukocyte Esterase Neg (Negative) 07/12/18 01:29 Urine WBC (Auto) < 1.0 /HPF (0.0-6.0) 07/12/18 01:29 Urine RBC (Auto) < 1.0 /HPF (0.0-6.0) 07/12/18 01:29 Urine Mucus Few /HPF 07/12/18 01:29 Salicylates < 0.3 mg/dL (2.8-20.0) L 07/12/18 20:50 Urine Opiates Screen Presumptive negative 07/12/18 01:29 Urine Methadone Screen Presumptive negative 07/12/18 01:29 Acetaminophen < 5.0 ug/mL (10.0-30.0) L 07/12/18 20:50 Ur Barbiturates Screen Presumptive negative 07/12/18 01:29 Ur Phencyclidine Scrn Presumptive negative 07/12/18 01:29 Ur Amphetamines Screen Presumptive negative 07/12/18 01:29 U Benzodiazepines Scrn Presumptive negative 07/12/18 01:29 Urine Cocaine Screen Presumptive negative 07/12/18 01:29 U Marijuana (THC) Screen Presumptive negative 07/12/18 01:29 Drugs of Abuse Note Disclamer 07/12/18 01:29 Plasma/Serum Alcohol < 0.01 % (0-0.07) 07/12/18 20:50
[2018-07-15] MEDS: ATIVAN PO SCH ×2 (08:20→09:15)
[2018-07-15] MEDS ORDERED: ATIVAN PO PRN (08:22)
[2018-07-15] MEDS: BUSPAR PO SCH ×3 (08:58→22:30)
[2018-07-15] MEDS: SINEMET PO SCH ×3 (08:58→22:31)
[2018-07-15] MEDS: COREG PO SCH ×2 (09:55→22:34)
[2018-07-15] MEDS: NORVASC PO SCH (09:56)
[2018-07-15] MEDS: PROzac PO SCH (09:57)
--- NOTE | 2018-07-15 11:40 | Progress Note ---
Subjective - Reason for Consult Consult date: 07/15/18 Reason for consult: Psychiatry Follow-up - Chief Complaint Chief complaint: "What" 63 year old AA female seen for psychiatric evaluation on the medical floor. She presents to [facility] ED with AMS, agitation, frequent falling, FTT symptoms and psychosis. Today the patient is agitated and currently restrained. Unable to assess the patient at this time.. Mental Status Exam - Vital signs Last Vital Signs Temp 98.2 F 07/15/18 05:01 Pulse 88 07/15/18 09:56 Resp 20 07/15/18 05:01 BP 145/91 07/15/18 09:56 Pulse Ox 100 07/15/18 05:01 - Exam Narrative exam: Unable to complete a MSE because of the patient's condition. Assessment and Plan Impression: Hx of Dementia per the record. Today the patient is agitated and currently restrained. Unable to assess the patient. DDx: R/O Psychotic DO Recommendation/Plan: Continue home medications Zoloft and Buspar. D/C'd Seroquel and start Risperdal 0.5 mg PO HS for agitation. The benefit of giving the patient Risperdal outweigh the risk at this time. The medical staff can continue to R/O underlying medical conditions responsible for worsening behavior/falls by the patient. Recommend Delirium precautions below: 1. Frequently reorient patient and involve him/her in their care (simple explanations of procedures, tests, medications). 2. Lights on and shades open during daytime hours. 3. Write date and goals of care in a visible place. 4. Try to avoid unnecessary interruptions to sleep during nighttime hours. 5. Obtain glasses, hearing aids from home if patient uses these at baseline. 6. Avoid medications that may exacerbate delirium (especially narcotics, benzodiazepines, barbiturates, ambien, lunesta, and medications with excessive anticholinergic property.) 7. Recommend a 1:1 sitter for safety. 8. D/C restraints when not indicated. Dispo: Will continue to follow the patient to determine proper dispo. Will staff with Dr. Cong Whalen
[2018-07-15] MEDS: HALDOL IM PRN (16:18)
[2018-07-15] MEDS: GLUCOPHAGE PO SCH (18:46)
[2018-07-15] MEDS: RisperDAL PO SCH (22:30)
[2018-07-16] MEDS: HumaLOG SUB-Q SCH ×4 (02:27→18:09)
[2018-07-16] MEDS: HALDOL IM PRN ×3 (04:36→23:55)
--- NOTE | 2018-07-16 08:08 | Progress Note ---
Assessment and Plan Assessment and plan: Patient is a 63 yo woman from [facility] who recently moved into the area with her sister Beatrice Catherine at bedside. She has not establish follow up care. Patient has a history of type 2 DM, hypertension, Parkinsonism symptoms, dlp and dementia with behavior disorder who presents to [facility] ED with AMS, agitation, frequent falling, FTT symptoms and psychosis. She was seen at [facility] ED on Sunday for medication refills and psychosis. She had a 90 day supply from doctor in [facility] but some had run out. She was sent home from [facility] ED with an increase dose of Seroquel 25mg from once daily to twice daily, Buspar was increased from twice daily to three times a day and started Cardizem (new drug). This has not helped her confusion. She has thrown dirty soiled diapers at family members, she wonders, she is aggressive and fights. Her speech is tangential. She will be admitted for medical clearance to be placed. CXR is negative. CT head, chest, abdomen and pelvis showed constipation o/w no acute findings. -Acute metabolic encephalopathy: restraints, add iv haldol prn, the Ativan helps the most -Worsening Dementia with behavior disorder; increase seroquel and consulted psych, d/c remote tele, she is throwing the leads at me and refuse to wear them -Tachycardia, ams related: stopped Cardizem due to interaction with seroquel and she is already on coreg -Accelerated hypertension; added Norvasc -Constipated: give dulcolax suppository -Dehydration: give ivf -Type 2 DM: use ssi -Severe Malnutrition, bmi 15.5 corrected; consult ingot buggy operator full code Disposition: continue inpatient care, d/w caregiver sister Zulema catherine, SNF placement patient trigger level 2 [place] the state History Interval history: Patient was seen and examined. Follow-up on current diagnosis of AMS. Overnight uneventful. Patient denies any chest pain, shortness breath, nausea/vomiting or severe headaches. Imaging, nursing note, chart, labs and old chart reviewed. Discussed with patient. The ativan helps the most. Hospitalist Physical - Physical exam Narrative exam: Gen: thin frail NAD, Awake, Alert, very confused, HEENT: NCAT, EOMI, PERRL, OP Clear Neck: supple, no adenopathy, no thyromegaly, no JVD CVS/Heart: Regualar tachycardia, normal S1S2, pulses present bilaterally Chest/Lungs: CTA B, Symmetrical chest expansion, good air entry bilaterally GI/Abdomen: soft, NTND, good bowel sounds, no guarding or rebound /Bladder: no suprapubic tenderness, no CVA or paraspinal tenderness Extermity/Skin: no c/c/e, no obvious rash MSK: moving, FROM x 4 Neuro: CN 2-12 grossly intact, no new focal deficits Psych: agitated, fist balled and up swinging - Constitutional Vitals: Temp Pulse Resp BP Pulse Ox 96.8 F L 84 20 139/82 98 07/16/18 06:37 07/16/18 06:37 07/16/18 06:37 07/16/18 06:37 07/16/18 06:37 Results - Labs CBC & Chem 7: 07/14/18 04:24 07/14/18 04:24 Labs: Laboratory Last Values WBC 14.5 K/mm3 (4.5-11.0) H 07/14/18 04:24 RBC 4.29 M/mm3 (3.65-5.03) 07/14/18 04:24 Hgb 12.3 gm/dl (10.1-14.3) 07/14/18 04:24 Hct 37.9 % (30.3-42.9) 07/14/18 04:24 MCV 88 fl (79-97) 07/14/18 04:24 MCH 29 pg (28-32) 07/14/18 04:24 MCHC 32 % (30-34) 07/14/18 04:24 RDW 14.3 % (13.2-15.2) 07/14/18 04:24 Plt Count 214 K/mm3 (140-440) 07/14/18 04:24 Lymph % (Auto) 28.3 % (13.4-35.0) 07/12/18 21:35 [place] % (Auto) 7.0 % (0.0-7.3) 07/12/18 21:35 Eos % (Auto) 1.3 % (0.0-4.3) 07/12/18 21:35 Baso % (Auto) 0.6 % (0.0-1.8) 07/12/18 21:35 Lymph # 2.7 K/mm3 (1.2-5.4) 07/12/18 21:35 [place] # 0.7 K/mm3 (0.0-0.8) 07/12/18 21:35 Eos # 0.1 K/mm3 (0.0-0.4) 07/12/18 21:35 Baso # 0.1 K/mm3 (0.0-0.1) 07/12/18 21:35 Add Manual Diff Complete 07/12/18 21:35 Seg Neutrophils % 62.8 % (40.0-70.0) 07/12/18 21:35 Seg Neutrophils # 5.9 K/mm3 (1.8-7.7) 07/12/18 21:35 Sodium 138 mmol/L (137-145) 07/14/18 04:24 Potassium 4.2 mmol/L (3.6-5.0) 07/14/18 04:24 Chloride 101.3 mmol/L (98-107) 07/14/18 04:24 Carbon Dioxide 25 mmol/L (22-30) 07/14/18 04:24 Anion Gap 16 mmol/L 07/14/18 04:24 BUN 14 mg/dL (7-17) 07/14/18 04:24 Creatinine 0.5 mg/dL (0.7-1.2) L 07/14/18 04:24 Estimated GFR > 60 ml/min 07/14/18 04:24 BUN/Creatinine Ratio 28 % 07/14/18 04:24 Glucose 106 mg/dL (65-100) H 07/14/18 04:24 POC Glucose 108 (70-105) H 07/16/18 06:09 Calcium 8.9 mg/dL (8.4-10.2) 07/14/18 04:24 Magnesium 1.80 mg/dL (1.7-2.3) 07/14/18 04:24 Total Bilirubin 0.60 mg/dL (0.1-1.2) 07/12/18 22:40 Direct Bilirubin < 0.2 mg/dL (0-0.2) 07/12/18 22:40 Indirect Bilirubin 0.4 mg/dL 07/12/18 22:40 AST 32 units/L (5-40) 07/12/18 22:40 ALT 11 units/L (7-56) 07/12/18 22:40 Alkaline Phosphatase 111 units/L (35-129) 07/12/18 22:40 Ammonia 43.0 umol/L (25-60) 07/15/18 12:53 Troponin T < 0.010 ng/mL (0.00-0.029) 07/12/18 22:40 Total Protein 6.7 g/dL (6.3-8.2) 07/12/18 22:40 Albumin 3.9 g/dL (3.9-5) 07/12/18 22:40 Albumin/Globulin Ratio 1.4 % 07/12/18 22:40 Lipase 33 units/L (13-60) 07/12/18 22:40 TSH 2.320 mlU/mL (0.270-4.200) 07/14/18 04:24 Urine Color Yellow (Yellow) 07/12/18 01:29 Urine Turbidity Clear (Clear) 07/12/18 01:29 Urine pH 5.0 (5.0-7.0) 07/12/18 01:29 Ur Specific [place] 1.020 (1.003-1.030) 07/12/18 01:29 Urine Protein <15 mg/dl mg/dL (Negative) 07/12/18 01:29 Urine Glucose (UA) >=500 mg/dL (Negative) 07/12/18 01:29 Urine Ketones Tr mg/dL (Negative) 07/12/18 01:29 Urine Blood Neg (Negative) 07/12/18 01:29 Urine Nitrite Neg (Negative) 07/12/18 01:29 Urine Bilirubin Neg (Negative) 07/12/18 01:29 Urine Urobilinogen < 2.0 mg/dL (<2.0) 07/12/18 01:29 Ur Leukocyte Esterase Neg (Negative) 07/12/18 01:29 Urine WBC (Auto) < 1.0 /HPF (0.0-6.0) 07/12/18 01:29 Urine RBC (Auto) < 1.0 /HPF (0.0-6.0) 07/12/18 01:29 Urine Mucus Few /HPF 07/12/18 01:29 Salicylates < 0.3 mg/dL (2.8-20.0) L 07/12/18 20:50 Urine Opiates Screen Presumptive negative 07/12/18 01:29 Urine Methadone Screen Presumptive negative 07/12/18 01:29 Acetaminophen < 5.0 ug/mL (10.0-30.0) L 07/12/18 20:50 Ur Barbiturates Screen Presumptive negative 07/12/18 01:29 Ur Phencyclidine Scrn Presumptive negative 07/12/18 01:29 Ur Amphetamines Screen Presumptive negative 07/12/18 01:29 U Benzodiazepines Scrn Presumptive negative 07/12/18 01:29 Urine Cocaine Screen Presumptive negative 07/12/18 01:29 U Marijuana (THC) Screen Presumptive negative 07/12/18 01:29 Drugs of Abuse Note Disclamer 07/12/18 01:29 Plasma/Serum Alcohol < 0.01 % (0-0.07) 07/12/18 20:50 Nutrition/Malnutrition Assess - Dietary Evaluation Nutrition/Malnutrition Findings: Nutrition Notes Start: 07/15/18 13:31 Freq: Status: Active Protocol: Document 07/15/18 13:32 OH (Rec: 07/15/18 13:56 OH [id number]) Nutrition Notes Need for Assessment generated from: MD Order Initial or Follow up Assessment Current Diagnoses Diabetes Hypertension Other Pertinent Diagnosis dementia; Parkinsonism; low BMI Current Diet PUREE Labs/Tests K+ 4.2 alb 3.9 Ca 8.9 Glu 90 na 138 Medications Ativan Coreg Humalog Prozac Norvasc Lipitor Haldol Height 5 ft 4 in Weight 41 kg [place] Body Weight (lbs) 120.0 BMI 15.5 Intake Prior to Admission Excellent Weight change and time frame Per sister, whom patient resides with, pt has a great appetite. Sister indicates she has steadily lost weight over the past 3 years. Prior, patient's weight was 177# (80. 45 kgs). Weight Status Underweight Subjective/Other Information Consulted for low BMI. Pt. noted to be severely underweight for height. Spoke w/sister who indicates patient lives with her. She is her caregiver along with sister's daughters. Per sister she feeds her 3x/day plus 3 snacks . Sister states she has dementia/Parkinsonism which contributes to her underweight ? Pt. consumes (4) 16 oz bottles of water daily at a minimum. Pt is always thirsty. In the past pt has drunk Boost/ensure but due to financial restraints she hasn' t been getting it at home. Sister states, " I would rather not put her in a detention. I don't think she would get what she needs there." Sister agreeable to starting Ensure bid for patient. Percent of energy/protein needs met: 100/100% Burn Absent Trauma Absent GI Symptoms None Current % PO GOOD (75-100%) #1 Nutrition Diagnoses Underweight Etiology RMR greater than kcal/pro intake As Evidenced by Signs and Symptoms BMI 15.5 Diagnosis Progress(for reassessment Continues documentation) Is patient on ventilator? No Is Patient Ambulatory and/or Out of Bed No REE-([facility]-confined to bed) 1139.652 Kcal/Kg value to use for calculation 40 Approximate Energy Requirements Using 1640 kcal/Kg Calculation Used for Recommendations Kcal/kg Additional Notes FLUID: 1 mL/kcal adj bw 52.27 kgs PROTEIN: 1-1.5 G/KG/ADJ BW (52 -78 G/DAY) Malnutrition Assessment Interpretation of Weight Loss non-severe Up to 20% in 1 year (Moderate) Clinical Findings Show: Severe Malnutrition Other Is clinical finding present on admission Yes ? Nutrition Intervention Change Diet Order: CONT PUREE DIET Add Supplement/Snack (indicate name/kcal Ensure Enlive bid /protein ) Provides kCal: 700 Provides Protein (gm) 40 Goal #1 Po intake to avg >75% PRO/KCAL requirements Goal #2 ONS (ENSURE ENLIVE) to be initiated BID and tolerated Goal #3 Weight to stablize and trend upward Anticipated Discharge Needs: Unable to determine at this time Follow-Up By: 07/18/18 Additional Comments F/u: po intake; tolerance to Ensure Enlive bid
[2018-07-16] MEDS: SINEMET PO SCH ×3 (08:38→21:25)
[2018-07-16] MEDS: BUSPAR PO SCH ×3 (08:38→21:25)
[2018-07-16] MEDS: NACL 0.45% 1000 ML 1,000 ML IV SCH ×2 (08:39→18:14)
[2018-07-16] MEDS: NORVASC PO SCH (09:33)
[2018-07-16] MEDS: PROzac PO SCH (09:33)
[2018-07-16] MEDS: COREG PO SCH ×2 (09:33→21:30)
--- NOTE | 2018-07-16 10:41 | Progress Note ---
Subjective - Reason for Consult Consult date: 07/16/18 Reason for consult: Psychiatry Follow-up - Chief Complaint Chief complaint: "Parish" 63 year old AA female seen for psychiatric evaluation on the medical floor. She presents to [facility] ED with AMS, agitation, frequent falling, FTT symptoms and psychosis. Today the patient is calm during the assessment. She was able to state her and recall 1/3 numbers within 5 mins. She stated, 'I just had a birthday." She could not explain why she was brought to the ER when asked. She did state that she have medical issues. She denies SI/Hi's and AVH's. No indications of side effects of her medications. Mental Status Exam - Vital signs Last Vital Signs Temp 96.8 F L 07/16/18 06:37 Pulse 84 07/16/18 09:33 Resp 20 07/16/18 06:37 BP 139/82 07/16/18 09:33 Pulse Ox 98 07/16/18 06:37 - Exam Narrative exam: MSE: Appearance: calm, cooperative Behavior: regular eye contact Speech: regular rate and tone Mood: "okay" Affect: congruent to mood Thought Process: circumstantial Thought Content: denies SI/HI's and AVH's Motor Activity: sitting up in bed Cognition: A/O x 3 Insight: variable Judgment: variable Assessment and Plan Impression: Hx of Dementia per the record. Today the patient is calm during the assessment. The patient is still in restraints. The patient's mental status is improving. DDx: R/O Psychotic DO Recommendation/Plan: Continue home medications Zoloft 25 mg PO daily and Buspar 10 mg PO TID. Also, continue Risperdal 0.5 mg PO HS for agitation. The benefit of giving the patient Risperdal outweigh the risk at this time. The medical staff can continue to R/O underlying medical conditions responsible for worsening behavior/falls by the patient. Recommend Delirium precautions below: 1. Frequently reorient patient and involve him/her in their care (simple explanations of procedures, tests, medications). 2. Lights on and shades open during daytime hours. 3. Write date and goals of care in a visible place. 4. Try to avoid unnecessary interruptions to sleep during nighttime hours. 5. Obtain glasses, hearing aids from home if patient uses these at baseline. 6. Avoid medications that may exacerbate delirium (especially narcotics, benzodiazepines, barbiturates, ambien, lunesta, and medications with excessive anticholinergic property.) 7. Recommend a 1:1 sitter for safety. 8. D/C restraints when not indicated. Dispo: Will continue to follow the patient and gather collateral information to determine proper dispo. Will staff with Dr. Braden Whalen.
[2018-07-16] MEDS: GLUCOPHAGE PO SCH ×2 (18:11→18:17)
[2018-07-16] MEDS: RisperDAL PO SCH (21:25)
[2018-07-17] MEDS: HumaLOG SUB-Q SCH ×4 (01:31→18:44)
[2018-07-17] MEDS: NORVASC PO SCH (09:02)
[2018-07-17] MEDS: BUSPAR PO SCH ×2 (09:03→14:00)
[2018-07-17] MEDS: COREG PO SCH (09:03)
[2018-07-17] MEDS: SINEMET PO SCH ×2 (09:04→14:00)
[2018-07-17] MEDS: PROzac PO SCH (09:04)
--- NOTE | 2018-07-17 11:48 | Discharge Summary ---
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 She has not establish follow up care. Patient has a history of type 2 DM, hypertension, Parkinsonism symptoms, dlp and dementia with behavior disorder who presents to [facility] ED with AMS, agitation, frequent falling, FTT symptoms and psychosis. She was seen at [facility] ED on Sunday for medication refills and psychosis. She had a 90 day supply from doctor in [facility] but some had run out. She was sent home from [facility] ED with an increase dose of Seroquel 25mg from once daily to twice daily, Buspar was increased from twice daily to three times a day and started Cardizem (new drug). This has not helped her confusion. She has thrown dirty soiled diapers at family members, she wonders, she is aggressive and fights. Her speech is tangential. She will be admitted for medical clearance to be placed. CXR is negative. CT head, chest, abdomen and pelvis showed constipation o/w no acute findings. -Acute metabolic encephalopathy: restraints, add iv haldol prn, the Ativan helps the most -Worsening Dementia with behavior disorder; increase seroquel and consulted psych, d/c remote tele, she is throwing the leads at me and refuse to wear them -Tachycardia, ams related: stopped Cardizem due to interaction with seroquel and she is already on coreg -Accelerated hypertension; added Norvasc -Constipated: give dulcolax suppository -Dehydration: give ivf -Type 2 DM: use ssi -Severe Malnutrition, bmi 15.5 corrected; consult wafer line worker full code Disposition: home with [facility] patient triggered level 2 from the state, Sister Beatrice Glass wants to take patient home with here now because same thing happened in [place] Today patient is calm and her mental status has improved with medication changes Disposition: [id number] HOME UNDER HOME [facility] Time spent for discharge: 37 minutes Core Measure Documentation - Palliative Care Palliative Care/ Comfort Measures: Not Applicable - Core Measures Any of the following diagnoses?: none - VTE Discharge Requirements Deep Vein Thrombosis/Pulmonary Embolism Present on Admission: No Has pt received <5 days of overlap therapy or INR<2.0: No Anticoagulant overlap therapy prescribed at discharge: No Contraindication No Overlap Therapy order at DC: Not Indicated Exam - Physical Exam Narrative exam: Gen: thin frail NAD, Awake, Alert, very confused, HEENT: NCAT, EOMI, PERRL, OP Clear Neck: supple, no adenopathy, no thyromegaly, no JVD CVS/Heart: Regualar tachycardia, normal S1S2, pulses present bilaterally Chest/Lungs: CTA B, Symmetrical chest expansion, good air entry bilaterally GI/Abdomen: soft, NTND, good bowel sounds, no guarding or rebound /Bladder: no suprapubic tenderness, no CVA or paraspinal tenderness Extermity/Skin: no c/c/e, no obvious rash MSK: moving, FROM x 4 Neuro: CN 2-12 grossly intact, no new focal deficits Psych: agitated, fist balled and up swinging - Constitutional Vitals: Temp Pulse Resp BP Pulse Ox 98.0 F 75 16 132/73 98 07/17/18 04:50 07/17/18 04:50 07/17/18 04:50 07/17/18 04:50 07/17/18 04:50 Plan Activity: up only with assistance, fall precautions, other (no strenous activity) Diet: regular, advance as tolerated Special Instructions: record daily BP diary, record blood sugar diary (daily) Additional Instructions: Dr. Khoa Lockwood. Psychiatry & neurology - neurology. [address], [place] [address]. [phone] Follow up with: PRIMARY CAREMD [Primary Care Provider] - 3-5 Days REJI BECKMAN [Staff Physician] - 7 Days MASHA ALLEN MD [Referring] - 7 Days KHOA LOCKWOOD MD [Referring] - 7 Days Prescriptions: amLODIPine [Norvasc] 10 mg PO QDAY #30 tablet AtorvaSTATin [Lipitor] 20 mg PO DAILY #30 tablet busPIRone [Buspar] 10 mg PO TID #90 tablet Carbidopa/Levodopa 25-100 [Sinemet 25/100] 1 each PO TID #90 tablet Carvedilol [Coreg] 6.25 mg PO BID #60 tablet FLUoxetine [PROzac] 20 mg PO QDAY #30 capsule LORazepam [Ativan] 0.5 mg PO Q8H PRN #15 tablet PRN Reason: Agitation risperiDONE [RisperDAL] 0.5 mg PO HS #30 tablet
[2018-07-17 12:57] VITALS: BP 102/54
--- NOTE | 2018-07-17 14:08 | Progress Note ---
Subjective - Reason for Consult Consult date: 07/17/18 Reason for consult: Psychiatric Follow-up Evaluation - Chief Complaint Chief complaint: Patient not seen. Patient discharged. Mental Status Exam - Vital signs Last Vital Signs Temp 97.9 F 07/17/18 11:21 Pulse 91 H 07/17/18 11:21 Resp 18 07/17/18 11:21 BP 102/54 07/17/18 11:21 Pulse Ox 98 07/17/18 11:21
[2018-07-17] MEDS: GLUCOPHAGE PO SCH (18:44)
== END 2018-07-17 18:52 | disposition hospice, home (50) | DRG 70 ==
LOC: ED 20:09 → UNDOADMIN 07-13 03:47 → 3A 07-13 03:47
PROVIDERS: ADMIT Internal Medicine; ATTEND Internal Medicine
PROC: 3E0234Z Introduction of Serum, Toxoid and Vaccine into Muscle, Percutaneous Approach (ICD-10-PCS; principal; 2018-07-14)
DX: G93.41 Metabolic encephalopathy (principal); E43 Unspecified severe protein-calorie malnutrition; Z68.1 Body mass index [BMI] 19.9 or less, adult; F03.91 Unspecified dementia, unspecified severity, with behavioral disturbance; E11.9 Type 2 diabetes mellitus without complications; I10 Essential (primary) hypertension; F29 Unspecified psychosis not due to a substance or known physiological condition; R00.0 Tachycardia, unspecified; W17.89XA Other fall from one level to another, initial encounter; G20 Parkinson's disease; K59.00 Constipation, unspecified; E86.0 Dehydration; Z79.899 Other long term (current) drug therapy; Z88.2 Allergy status to sulfonamides; Y93.89 Activity, other specified; Y92.89 Other specified places as the place of occurrence of the external cause; Y99.8 Other external cause status; Z23 Encounter for immunization
CPT/HCPCS: 36415; 70450; 71045; 71260; 74177; 80048; 80076; 80307; 80320; 81001; 82140; 82962; 83690; 83735; 84443; 84484; 85025; 85027; 90686; 90732; 93005; 93010; 96374; G0378; A9270-GY; G0480; G8978-GP; G8979-GP; G8980-GP; J0360; J1630; J1815; J2060; J2250; J7030; Q9967